=== PATIENT | male | born 1975 | race Hispanic/Latino ===

== ENCOUNTER 2020-02-22 | Emergency (ER) | payer BC ==
[~2020-02-22] MED LIST: KEFLEX500 MG OR; LORTAB5 OR; MEDDOSEPAK OR; NO HOME MEDS
[2020-02-22] MEDS ORDERED: PRAVASTATIN20 MG PO (16:28)
[2020-02-22 16:49] LABS: HEMATOCRIT 42.7 % (39.0-50.0); HEMOGLOBIN 14.8 g/dl (14.0-18.0); IMMATURE GRANULOCYTES 0.1 % (0.0-5.0); MEAN CELL VOLUME 88.8 fL CALC (80.0-100.0); MEAN CORPUSCULAR HGB 30.8 pG CALC (26.0-32.0); MEAN CORPUSCULAR HGB CONC 34.7 g/dL CAL (32.0-36.0); NEUT# 5.23 thou/uL (1.82-7.42); RED BLOOD COUNT 4.81 mill/uL (4.70-6.10); RED CELL DISTRI WIDTH 12.9 % (11.5-15.5)
[2020-02-22 17:32] LABS: ANION GAP 14 (6-22 (CALC)); BUN 19 mg/dL (9-20); BUN/CREATININE RATIO 24 (12-20 (CALC)); CARBON DIOXIDE 26 mmol/l (22-30); CHLORIDE 101 mmol/l (95-108); CREATININE 0.8 mg/dL (0.7-1.3); GFR > 60 ML/MIN (>=60 (CALC)); GFR FOR AFR.AMER. > 60 ML/MIN (>=60 (CALC)); POTASSIUM 4.3 mmol/l (3.5-5.1); SODIUM 136 mmol/l (137-146)
== END 2020-02-22 19:01 | disposition home or self-care (01) | DRG 313 ==
PROVIDERS: Family Medicine
DX: R07.9 Chest pain, unspecified (principal)

== ENCOUNTER 2022-04-09 18:05 | Emergency (ER) | payer SELFPAY ==
[~2022-04-09] VITALS: Ht 167.6 cm; Wt 94.4 kg
[~2022-04-09 18:05] MED LIST changes: +PRAVASTATIN20 MG PO
[2022-04-09 19:11] VITALS: BP 136/79
[2022-04-09 19:15] VITALS: BP 125/74
[2022-04-09 19:31] VITALS: BP 130/74
[2022-04-09 20:05] LABS: HEMATOCRIT 42.8 % (39.0-50.0); HEMOGLOBIN 14.7 g/dl (14.0-18.0); MEAN CELL VOLUME 91.8 fL CALC (80.0-100.0); MEAN CORPUSCULAR HGB 31.5 pG CALC (26.0-32.0); MEAN CORPUSCULAR HGB CONC 34.3 g/dL CAL (32.0-36.0); NEUT# 3.44 thou/uL (1.82-7.42); RED BLOOD COUNT 4.66 mill/uL (4.70-6.10); RED CELL DISTRI WIDTH 12.6 % (11.5-15.5)
[2022-04-09 20:10] LABS: URINE BILIRUBIN - DIPSTICK NEGATIVE (NEGATIVE); URINE BLOOD DIPSTICK NEGATIVE (NEGATIVE); URINE COLOR YELLOW; URINE GLUCOSE - DIPSTICK NEGATIVE (NEGATIVE); URINE KETONE NEGATIVE (NEGATIVE); URINE LEUK ESTERASE NEGATIVE (NEGATIVE); URINE PROTEIN - DIPSTICK NEGATIVE (NEG-TRACE); URINE SPECIFIC GRAVITY 1.025; URINE UROBILINOGEN - DIPSTICK 0.2 E.U./dL (0.2)
[2022-04-09 20:15] LABS: URINE NITRITE - DIPSTICK NEGATIVE (Negative)
[2022-04-09 20:22] LABS: ALBUMIN 4.1 g/dL (3.2-5.0); ALKALINE PHOSPHATASE 52 u/l (38-126); AMYLASE 59 u/l (30-110); ANION GAP 10 (6-22 (CALC)); BUN 17 mg/dL (9-20); BUN/CREATININE RATIO 20 (12-20 (CALC)); CARBON DIOXIDE 28 mmol/l (22-30); CHLORIDE 106 mmol/l (95-108); CREATININE 0.9 mg/dL (0.7-1.3); GFR > 60 ML/MIN (>=60 (CALC)); GFR FOR AFR.AMER. > 60 ML/MIN (>=60 (CALC)); LIPASE 44 u/l (23-300); POTASSIUM 4.4 mmol/l (3.5-5.1); SGOT/AST 29 u/l (17-59); SODIUM 140 mmol/l (137-146); TOTAL PROTEIN 7.4 g/dL (6.3-8.2)
[2022-04-09 20:25] LABS: BILIRUBIN, TOTAL 0.3 mg/dL (0.0-1.4)
[2022-04-09] MEDS ORDERED: VOLTAREN75 MG PO (20:52)
[2022-04-09 20:54] VITALS: BP 130/74
== END 2022-04-09 21:05 | disposition home or self-care (01) | DRG 563 ==
LOC: ED 18:05
PROVIDERS: Family Medicine
DX: S39.012A Strain of muscle, fascia and tendon of lower back, initial encounter (principal); R10.9 Unspecified abdominal pain; E78.5 Hyperlipidemia, unspecified; X58.XXXA Exposure to other specified factors, initial encounter

== ENCOUNTER 2024-08-04 15:40 | Emergency (ER) | payer OTHER ==
[~2024-08-04] VITALS: Ht 167.6 cm; Wt 90.7 kg
[~2024-08-04 15:40] MED LIST changes: +VOLTAREN75 MG PO
[2024-08-04 15:51] VITALS: BP 143/90
[2024-08-04] MEDS ORDERED: LIDOcaine HCl 1% (Local Anesth.) 20 ML VIAL STI STA (15:52)
[2024-08-04] MEDS ORDERED: POVIDONE IODINE 0.5 OZ/BTL TOP ONE (15:55)
[2024-08-04] MEDS ORDERED: Diph, Acellular Pertussis, Tet 0.5 ML/VIAL (Tdap) SDV IM ONE (15:55)
[2024-08-04] MEDS ORDERED: LIDOcaine HCl 1% (Local Anesth.) 20 ML VIAL IM STA (15:58)
[2024-08-04] MEDS ORDERED: cefTRIAXone SODIUM 2 GM/VIAL SDV IM ONE (16:00)
[2024-08-04 16:01] VITALS: BP 130/71
[2024-08-04] MEDS ORDERED: CEPHALEXIN500 M1 PO (16:34)
[2024-08-04] MEDS ORDERED: BACTRIM DS1 TAB PO (16:34)
[2024-08-04] MEDS ORDERED: TRAMADOL HYDROC50 M1 PO (16:35)
[2024-08-04 17:12] VITALS: BP 128/82
== END 2024-08-04 17:12 | disposition home or self-care (01) | DRG 603 ==
LOC: ED 15:40
PROC: 0HJPXZZ Inspection of Skin, External Approach (ICD-10-PCS; principal; 2024-08-04)
DX: L03.012 Cellulitis of left finger (principal)